=== PATIENT | male | born 1970 | race Asian ===

== ENCOUNTER 2018-05-02 11:23 | Emergency (ER) | payer MEDICAID ==
[~2018-05-02] VITALS: Ht 157.5 cm; Wt 54.5 kg
[2018-05-02 11:26] VITALS: BP 137/85
[2018-05-02] MEDS ORDERED: silver sulfadiazine cream 400gm jar TP STA (11:44)
[2018-05-02] MEDS ORDERED: TETanus/Pertussis (Acell)/Diphther VAC/PF (Tdap-Adult) 0.5ml syringe IMVAC ONE (11:45)
[2018-05-02] MEDS ORDERED: CEPH-572 PO (11:47)
[2018-05-02] MEDS ORDERED: SILV20CR13 TOP (11:47)
== END 2018-05-02 12:56 | disposition home or self-care (01) ==
LOC: ER 11:25
DX: T22.211A Burn of second degree of right forearm, initial encounter (principal); T20.26XA Burn of second degree of forehead and cheek, initial encounter; Z79.2 Long term (current) use of antibiotics; X10.2XXA Contact with fats and cooking oils, initial encounter; Y93.G3 Activity, cooking and baking; Y92.89 Other specified places as the place of occurrence of the external cause; Y99.8 Other external cause status
CPT/HCPCS: 16020; 90471; 90715; 99284